=== PATIENT | male | born 1935 | race Caucasian/White ===

== ENCOUNTER → 2016-10-09 | Outpatient (CLI) | payer MEDICARE ==
[2016-10-09 08:58] LABS: Blood Urea Nitrogen 27 mg/dL (9-20); Non-African American GFR(MDRD) 52 (>60 ml/min/1.73 sqM)
--- NOTE | 2016-10-09 09:51 | CT ---
EXAMINATION TYPE: CT ChestAbdPelvis w con DATE OF EXAM: 10/09/2016 9:33 AM COMPARISON: 07/14/2016 HISTORY: Patient has no complaints at time of service. Follow up study for known lung CA. CT DLP: 2005.7 mGycm Automated exposure control for dose reduction was used. CONTRAST: CT scan of the chest, abdomen and pelvis is performed with Oral Contrast and with IV Contrast, patien t injected with 80 mL of Visipaque 320. FINDINGS: There is some hyperdense soft tissue thickening posterior to the left lobe of the thyroid gland which appears unchanged measuring up to 2.4 cm possibly related to thyroid nodule. Moderate to severe bilateral gynecomastia. The heart is normal size without pericardial effusion. Coronary vessel calcifications are present and are a marker for coronary artery disease. There is conventional arch vessel branching anatomy and mild atherosclerotic arch calcifications. The re is ectasia of the upper descending thoracic aorta at 3.2 cm. Subpleural 6 mm nodule left upper lobe retrospectively stable. A cluster of nodularity measuring 7 mm in the anterior right midlung is unchanged from previous. There is bibasilar strandy opacities likely representing scarring. There is a stable small left pleur al effusion. With subsegmental consolidation likely related to compressive atelectasis. Redemonstrated destructive lesion within the upper sternum measuring approximately 4.7 x 4.0 cm stabl e to minimally larger from prior exam. Lytic soft tissue extends down to the mid sternum. Redemonstrated osteolytic lesion involving the left T9 pedicle, lamina, and transverse process and th e subjacent proximal aspect of the left tenth rib. Involvement of the left transverse process also ap pears retrospectively stable. There appears to be relatively similar extension into the left lateral epidural space. Focal lucency L2 vertebral body also stable suspicious for metastasis. Canal stenosis suspected invol ving majority of the lumbar spine severe degenerative changes and facet arthropathy. Destructive right iliac lesion appears increased in size from previous exam now measuring 3.3 x 3.4 c m previously measuring 2.7 x 2 cm. ABDOMEN: Small hiatal hernia. Calcified granuloma posterior left hepatic lobe. No other focal liver lesion seen. Numerous layering calculi within the gallbladder. There is no abnormal gallbladder distention. Nodularity of the right adrenal gland measuring up to 2.1 cm is unchanged from previous. Left adrenal gland, left kidney, spleen, and pancreas show no gross abnormality. Redemonstrated 4.8 cm cyst lower pole right kidney. No dilated small bowel, free fluid, or free air. No mesenteric or retroperitoneal lymphadenopathy. Normal appendix. Oral contrast has progressed to th e hepatic flexure. There is mild overall stool burden an diverticulosis of the lower descending and p roximal sigmoid colon. No pericolonic inflammatory change. PELVIS: Bladder urine distended. Prostate gland enlarged at 5.0 cm wide with central prostatic calcifications . Moderate stool within the rectum. No abnormal fluid collection the pelvis or pelvic lymphadenopathy seen. Bones: Redemonstrated lytic lesion within the anterior right iliac crest. There appears to be a great er degree of endosteal scalloping suggesting slight lesional enlargement. Degenerative changes are pr esent throughout the spine particularly the upper to mid lumbar spine. Sternal lesion as well as left T9 posterior element and proximal left T10 rib lesions are redemonstrated as mentioned above. Scolio sis and multilevel degenerative disc disease again noted. IMPRESSION: 1. Redemonstrated lytic lesion within the left T9 posterior elements extending into the left lateral epidural space at this level. Also, subjacent lytic lesion proximal left tenth rib. Overall appearanc e is unchanged. 2. Lytic lesion involving the sternum is stable to minimally larger. 3. Lytic lesion anterior right iliac crest shows interval increase in size relative to the previous e xam. 4. Stable nodularity anterior right midlung could represent a site of treated disease. Also, stable 2 .1 cm right adrenal gland nodule. 5. Stable small left pleural effusion. 6. Distal colonic diverticulosis.
== END | disposition home or self-care (01) ==
LOC: RADCTMAIN 08:27
PROVIDERS: ATTEND Internal Medicine Hematology & Oncology
DX: Z03.89 Encounter for observation for other suspected diseases and conditions ruled out (principal); C34.12 Malignant neoplasm of upper lobe, left bronchus or lung
CPT/HCPCS: 82565; 84520; 71260; 74177; 36415; Q9967

== ENCOUNTER → 2016-11-12 | Outpatient (CLI) | payer MEDICARE ==
[2016-11-12 13:16] LABS: Blood Urea Nitrogen 32 mg/dL (9-20); Non-African American GFR(MDRD) 58 (>60 ml/min/1.73 sqM)
--- NOTE | 2016-11-12 15:02 | CT ---
EXAMINATION TYPE: CT soft tissue neck w con DATE OF EXAM: 11/12/2016 2:12 PM COMPARISON: NONE HISTORY: Neck Mass CT DLP: 627 mGycm CONTRAST: Patient injected with 100 ml mL of Omnipaque 300. TECHNIQUE: Axial images at 3 mm thick sections. Reconstructed images in the coronal plane and sagitt al plane are reviewed. FINDINGS: Limited CT sections are obtained the lung apices. The lung apices appear clear. CT neck: The torus tubarius and fossa of Rosenmuller are normal. Hearing Instrument Specialist spaces are normal. Parotid glands appear normal and symmetrical. Submandibular glands, are normal. Parapharyngeal spac es are normal. No suspicious adenopathy is evident. There is some asymmetry at the level of the left vocal cord level. This may be some due to some asymm etry of the arytenoid cartilage. Discrete mass is not identified. There is prominence of the left lobe of the thyroid which wraps around towards the esophagus. There m ay be some displacement of the trachea towards the left. This is similar to the 10/09/2016 CT chest fin dings. Differential could include adenopathy. Osseous structures are normal. No lytic areas are evident within the [id number]. Degenerative milner ges with foraminal stenosis is noted within the cervical spine, greater on the left. There is some mucosal thickening present within maxillary sinus on the right and within the right trace al passage. IMPRESSIONS: 1. Asymmetry of the arytenoid cartilage which may cause some displacement of the left vocal cord. 2. Adenopathy versus enlarged left lobe thyroid displacing the trachea towards the left.
== END | disposition home or self-care (01) ==
LOC: RADCTMAIN 12:24
PROVIDERS: ATTEND Otolaryngology
DX: R22.1 Localized swelling, mass and lump, neck (principal)
CPT/HCPCS: 82565; 84520; 70491; 36415; Q9967

== ENCOUNTER 2016-11-19 08:53 | Day surgery (SDC) | payer MEDICARE ==
[2016-11-19 10:03] VITALS: TEMP 97.9
[2016-11-19 10:32] VITALS: RESP 16
[2016-11-19 11:34] VITALS: BP 110/67; PULSE 74
--- NOTE | 2016-11-19 13:49 | CT ---
EXAMINATION TYPE: CT biopsy lymph node DATE OF EXAM: 11/19/2016 10:51 AM COMPARISON: NONE HISTORY: Lymphadenopathy-cervical region CT DLP: 3315mGycm The procedure was explained to the patient. The risks, complications, benefits, and alternatives wer e discussed and any questions were answered. Informed consent was obtained. Patient was placed supi ne on the CT table and prepped and draped in the usual sterile fashion. Utilizing CT guidance, an 22-gauge needle access into the left neck mass was achieved and 2 passes we re performed. Pathology confirmed adequate sample. The patient was stable throughout the procedure an d remained stable upon discharge. All elements of maximal barrier and sterile technique utilized. IMPRESSION: 1. Successful CT-guided FNA left neck mass.
== END 2016-11-19 11:00 | disposition home or self-care (01) ==
LOC: RADPROMAIN 08:53
PROVIDERS: ATTEND Otolaryngology
DX: C77.9 Secondary and unspecified malignant neoplasm of lymph node, unspecified (principal); C34.90 Malignant neoplasm of unspecified part of unspecified bronchus or lung
CPT/HCPCS: 10022; 38505; 77012; 88173; 88305; 88341; 88342

== ENCOUNTER → 2016-12-30 | Outpatient (CLI) | payer MEDICARE ==
[2016-12-30 14:43] LABS: Blood Urea Nitrogen 26 mg/dL (9-20); Non-African American GFR(MDRD) 58 (>60 ml/min/1.73 sqM)
--- NOTE | 2016-12-30 16:01 | CT ---
EXAMINATION TYPE: CT ChestAbdPelvis w con DATE OF EXAM: 12/30/2016 3:20 PM COMPARISON: 10/09/2016 HISTORY: 81-year-old male with lung Cancer TECHNIQUE: Contiguous axial scanning of the chest, abdomen, and pelvis performed with IV Contrast, pa tient injected with 100 ml mL of Omnipaque 300. Delayed images through the kidneys were obtained. Cor onal/sagittal reconstructions performed. CT DLP: 2023.60 mGycm Automated exposure control for dose reduction was used. FINDINGS: CHEST: Stable 2 cm hypodense prominence to the posterior left lobe of thyroid gland possibly underlying nodu le. Heart is normal size without pericardial effusion. Mild coronary vessel calcifications are present. B orderline ectasia ascending aorta at 3.5 cm. Mild atherosclerotic arch calcifications and conventiona l arch vessel branching anatomy. 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 Moderate bilateral gynecomastia redemonstrated. Evaluation of the lungs show some patchy basilar right middle lobe atelectasis, some dependent atelec tasis at the posterior lung bases, slightly decreased, now trace left pleural effusion with adjacent atelectasis. No new pulmonary nodules. Some patchy anterior right midlung and peripheral right midlung opacity is unchanged. ABDOMEN: Small hiatal hernia. Calcified granuloma inferior left hepatic lobe. No focal liver lesion. Numerous gallstones are presen t without abnormal gallbladder distention. Portal venous system is patent. Stable 2.1 cm right adrenal gland nodule. 5.7 cm right renal cyst is unchanged. Left kidney, left adrenal gland, spleen, and pancreas show no gross abnormality. No dilated small bowel, free fluid, or free air. A 6 mm aortocaval lymph node in the retroperitoneum is unchanged. Otherwise, no mesenteric or retrope ritoneal lymphadenopathy. There is sigmoid diverticulosis. Mild wall thickening and pericolonic fat stranding along the midsigm oid, for example, axial image 102 -105. Pelvis: Prostate gland remains mildly enlarged at 5.3 cm. Bladder is urine distended. No abnormal fluid colle ction in the pelvis or pelvic lymphadenopathy seen. Bones: Degenerative changes lower lumbar spine with degenerative levoconvex curvature and spondylotic change seen throughout the thoracic spine. Large heterogeneously enhancing lytic lesion involving the upper sternal body to the level of the lety rnomanubrial joint. This measures 7.6 x 7.8 x 4.3 cm versus 8.5 x 8.2 x 4.5 cm, previously. Lytic lesion within the left T9 posterior elements is redemonstrated as is the subjacent lytic lesion within the medial T10 rib. The destructive soft tissue lesion within the anterior right iliac bone is stable, possibly minimally larger measuring 5 cm wide versus 4.8 cm, previously. IMPRESSION: 1. SIGMOID DIVERTICULOSIS. THERE MAY BE SLIGHT PERICOLONIC FAT STRANDING ALONG THE MIDSIGMOID ; CORRE LATE FOR ANY SYMPTOMS OF MILD ACUTE DIVERTICULITIS. 2. DESTRUCTIVE SOFT TISSUE OF UPPER STERNAL BODY LESION SLIGHTLY SMALLER (7.6 X 7.8 X 4.3 CM VERSUS 8 .5 X 8.2 X 4.5 CM, PREVIOUSLY). 3. EXPANSILE DESTRUCTIVE ANTERIOR RIGHT ILIAC BONE LESION STABLE TO MINIMALLY LARGER (5.0 CM VERSUS 4 .8 CM, PREVIOUSLY). 4. LYTIC LESION LEFT T9 POSTERIOR ELEMENTS AND SUBJACENT LYTIC LESION MEDIAL LEFT 10TH RIB ARE UNCHAN GED. 5. STABLE 2.1 CM RIGHT ADRENAL GLAND NODULE. 6. STABLE PATCHY AND NODULAR DENSITIES IN THE RIGHT MIDLUNG. THERE IS DECREASING, NOW TRACE LEFT PLEU RAL EFFUSION WITH INCREASING PATCHY LEFT BASILAR ATELECTASIS.
== END | disposition home or self-care (01) ==
LOC: RADCTMAIN 13:48
PROVIDERS: ATTEND Internal Medicine Hematology & Oncology
DX: C34.12 Malignant neoplasm of upper lobe, left bronchus or lung (principal); J98.11 Atelectasis; J98.4 Other disorders of lung; R91.1 Solitary pulmonary nodule; E27.8 Other specified disorders of adrenal gland; K57.30 Diverticulosis of large intestine without perforation or abscess without bleeding; M79.89 Other specified soft tissue disorders; M89.8X8 Other specified disorders of bone, other site; R93.8 Abnormal findings on diagnostic imaging of other specified body structures
CPT/HCPCS: 82565; 84520; 71260; 74177; 36415; Q9967

== ENCOUNTER → 2017-04-14 | Outpatient (CLI) | payer MEDICARE ==
[2017-04-14 11:32] LABS: Blood Urea Nitrogen 23 mg/dL (9-20); Non-African American GFR(MDRD) 58 (>60 ml/min/1.73 sqM)
--- NOTE | 2017-04-14 12:35 | CT ---
EXAMINATION TYPE: CT chest w con DATE OF EXAM: 04/14/2017 COMPARISON: Prior CT 12/27/2016 HISTORY: Lung cancer CT DLP: 604.60 mGycm Automated exposure control for dose reduction was used. CONTRAST: CT scan of the chest is performed with IV Contrast, patient injected with 100 ml mL of Omnipaque 300. FINDINGS: LUNGS: There is been some interval increase in the amount of pleural fluid on the left. Some minimal pleural fluid also present on the right. MEDIASTINUM: The neck mass at the level of the thoracic inlet on the left is again noted and shows si milar AP dimension approximately 3.6 cm. AORTA: No additional significant abnormality is seen. OTHER: The large lytic lesion involving the sternum with soft tissue component is again seen as are the lytic lesions involving the spine, the show a similar appearance. Gallstones are again noted, the right adrenal nodule is stable. Exophytic simple cyst present at the lower pole of the right kidney again seen. Findings of gynecomastia suspected. IMPRESSION: Interval increase in pleural effusions left greater than right. Otherwise, findings show a similar appearance to previous exam.
== END | disposition home or self-care (01) ==
LOC: RADCTMAIN 10:51
PROVIDERS: ATTEND Internal Medicine Hematology & Oncology
DX: J90 Pleural effusion, not elsewhere classified (principal); C34.2 Malignant neoplasm of middle lobe, bronchus or lung
CPT/HCPCS: 82565; 84520; 71260; 36415; Q9967

== ENCOUNTER → 2017-04-17 | Outpatient (CLI) | payer MEDICARE ==
--- NOTE | 2017-04-17 11:19 | MR ---
EXAMINATION TYPE: MR brain wo/w con DATE OF EXAM: 04/17/2017 COMPARISON: NONE HISTORY: Lung ca , Confusion TECHNIQUE: Multiplanar, multisequence images of the brain and brainstem is performed without and with IV contras t, utilizing 10 mL intravenous Gadavist . FINDINGS: Diffusion weighted images demonstrate no evidence of a recent infarct or other diffusion ab normality. There is no extra-axial fluid collection. There is hyperintensity involving the josé luis as well as confluent and scattered hyperintensities on inversion recovery and T2-weighted sequences in t he periventricular and subcortical white matter. The ventricular system and cisternal spaces are norm al in size and appearance. The brain volume is age appropriate. Midline structures demonstrate normal morphology. The craniocervical junction appears within normal limits. Post contrast images demonstrate no abnormal enhancement. The dural venous sinuses appear pa tent. The visualized sinuses are remarkable for inflammatory changes in the bilateral maxillary sinus , ethmoid air cells, frontal sinus, and the globes are intact. IMPRESSION: Nonspecific white matter demyelination, age related atrophy. Extensive sinus disease.
== END ==
LOC: RADMRIMAIN 10:02
PROVIDERS: ATTEND Internal Medicine Hematology & Oncology
DX: C34.12 Malignant neoplasm of upper lobe, left bronchus or lung (principal); R90.89 Other abnormal findings on diagnostic imaging of central nervous system; G31.1 Senile degeneration of brain, not elsewhere classified
CPT/HCPCS: 70553; A9581

== ENCOUNTER → 2017-06-23 | Outpatient (CLI) | payer MEDICARE ==
[2017-06-23 10:41] LABS: Blood Urea Nitrogen 23 mg/dL (9-20); Non-African American GFR(MDRD) 54 (>60 ml/min/1.73 sqM)
--- NOTE | 2017-06-23 12:47 | CT ---
EXAMINATION TYPE: CT chest w con DATE OF EXAM: 06/23/2017 COMPARISON: 04/14/2017 and 12/30/2016 HISTORY: 81-year-old male follow-up lung cancer Lung CA follow up TECHNIQUE: Contiguous axial scanning of the chest after the administration of 80 mL of Visipaque 320. Coronal/sagittal reconstructions performed. CT DLP: 597.4mGycm. Automatic exposure control utilized for a dose reduction. FINDINGS: The heart is normal size without pericardial effusion. Coronary vascular calcifications are present. Marker for coronary artery disease. Ascending aorta at 3.6 cm. Upper descending thoracic aorta mildly aneurysmal at 3.2 cm. Conventional arch vessel branching anatomy. Large heterogeneous nodule of the left lobe of thyroid gland measuring 3.1 cm, appearing minimally mo re full from prior 12/30/2016 exam. Slight rightward deviation of the trachea at this level. Moderate bilateral gynecomastia. Scattered mild interstitial thickening in the mid to lower lungs is a chronic postinflammatory appear ance likely with interstitial scarring. Some focal patchy peripheral left basilar opacity suggests pl eural parenchymal scarring. There is residual small left pleural effusion, slightly decreased from pr ior. Trace right pleural effusion is similar. Minimal patch of groundglass right middle lobe unchanged. Small hiatal hernia with small layering calculi measuring up to 9 mm. A 2.1 cm right adrenal gland no dule is relatively unchanged. Bones: Redemonstrated destructive lesion involving the left posterior elements of T9 vertebral body a nd with stable focal lysis of the posteromedial left rib at this level. Destructive soft tissue mass involving the upper sternal body now measures 8.1 cm craniocaudal by 8.1 cm wide by 4.6 cm AP (versus 7.3 x 7.6 x 4.4 cm on 04/14/2017). IMPRESSION: 1. Small left trace right pleural effusions persist. Patchy opacity peripheral left base suspected to represent pleural parenchymal scarring. Small patch of groundglass right middle lobe and the 2.1 cm right adrenal gland nodule are unchanged as well. 2. 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 3. Destructive soft tissue mass involving the upper sternal body increased in size now measuring 8.1 x 8.1 cm versus 7.3 x 7.6 cm, previously. 4. There seems to be gradual enlargement of the patient's left thyroid nodule now measuring up to 3.1 cm. This has mild mass effect onto the trachea at this level without airway compromise.
== END | disposition home or self-care (01) ==
LOC: RADCTMAIN 09:58
PROVIDERS: ATTEND Internal Medicine Hematology & Oncology
DX: J90 Pleural effusion, not elsewhere classified (principal); C34.12 Malignant neoplasm of upper lobe, left bronchus or lung; C79.51 Secondary malignant neoplasm of bone; M79.89 Other specified soft tissue disorders
CPT/HCPCS: 82565; 84520; 71260; 36415; Q9967

== ENCOUNTER → 2017-09-21 | Outpatient (CLI) | payer MEDICARE ==
[2017-09-21 09:41] LABS: Blood Urea Nitrogen 27 mg/dL (9-20)
--- NOTE | 2017-09-21 14:46 | CT ---
EXAMINATION TYPE: CT ChestAbdPelvis w con DATE OF EXAM: 09/21/2017 INDICATION: Follow up to lung CA COMPARISON: 06/23/2017 CT DLP: 2100.7 mGycm CONTRAST: Performed with Oral Contrast and with IV Contrast, patient injected with 100 mL of Omnipaque 300. TECHNIQUE: Axial images at 5 mm thick sections. Reconstructed images in the coronal plane. Delayed images through the kidneys. FINDINGS: CT CHEST: Left lobe thyroid appears enlarged and is places the trachea to the right. A 0.4 cm peripheral density may be the lateral right lung apex. Series 5 image 12. Small groundglass opacities in the posterior lateral right upper lobe. Series 5 image 14. Peripheral based density may be within the upper anterior left chest measuring 0.5 cm. Series 5 image 14. There is a 0.4 cm nodula r density along the major fissure on the right lower lung field series 5 image 36. At the left base there is a 0.4 cm triangular density at the same level. Series 5 image 36. These tiny densities appea r stable. There is increasing size left lingular nodule measuring 1.3 cm near the diaphragm. Series 5 image 43. Minimal left pleural effusion is present. A very small right pleural effusion is present. These are s table from 2017. No enlarged mediastinal or hilar adenopathy is evident. The ascending aorta diameter at the level of the main pulmonary artery is 3.7 cm. The main pulmonary artery diameter at the bifurcation is 2.2 cm. There is a large mass expanding the sternum. Appears to measure 4.8 x 8.3 cm centered on image 18 ser ies 4. This extends into the inferior sternum and has retrosternal soft tissue. This appears larger t art comparison. CT ABDOMEN: Liver: Normal Spleen: Normal Pancreas: Normal Adrenal glands: The adrenal glands are normal. Gallbladder: Gallstones are present. Kidneys: No masses are evident. No hydronephrosis is present. There is a 5.4 cm cyst measuring 9 Ho unsfield units at the inferior pole right kidney. Delayed images were obtained through the kidneys, which remain unremarkable. Aorta: Vascular calcification is within the aorta. Inferior vena cava: Normal. CT PELVIS: Loops of bowel within the abdomen and pelvis are normal. Diverticular changes and thickening thro ugh the proximal sigmoid colon may be present. Mild diverticulitis or underlying mass could be consid ered. Asymmetric thickening at the level the rectum may be present. Clinical correlation is recommend ed. Appendix: Not identified. No suspicious tubular structures or inflammatory changes are evident. Urinary bladder: Normal. Genitourinary structures: Prostate calcification may be present. Osseous structures: No suspicious lytic or sclerotic lesions. IMPRESSIONS: 1. Enlarging sternal metastasis. 2. Increasing nodular density lingula can be related atelectasis or metastatic lesion. 3. Thickening of the sigmoid colon related to mild diverticulitis. Adjacent inflammatory changes are not identified. Underlying mass is not excluded. Follow-up is recommended. 4. Some thickening appears asymmetric at the level the rectum.
== END | disposition home or self-care (01) ==
LOC: RADCTMAIN 08:50
PROVIDERS: ATTEND Internal Medicine Hematology & Oncology
DX: C34.12 Malignant neoplasm of upper lobe, left bronchus or lung (principal); C79.51 Secondary malignant neoplasm of bone; K57.92 Diverticulitis of intestine, part unspecified, without perforation or abscess without bleeding; K62.89 Other specified diseases of anus and rectum
CPT/HCPCS: 82565; 84520; 71260; 74177; 36415; Q9967

== ENCOUNTER → 2017-10-06 | Outpatient (CLI) | payer MEDICARE ==
--- NOTE | 2017-10-07 12:59 | ECHOF ---
Referral Reason:C34.12 Lung cancer Z01.818 [facility] MEASUREMENTS -------- HEIGHT: 175.3 cm WEIGHT: 108.9 kg BP: 142/77 RVIDd: 2.7 cm (< 3.3) IVSd: 1.4 cm (0.6 - 1.1) LVIDd: 4.6 cm (3.9 - 5.3) LVPWd: 1.4 cm (0.6 - 1.1) IVSs: 1.6 cm LVIDs: 3.4 cm LVPWs: 1.6 cm LAESV Index (A-L): 15.16 ml/m Ao Diam: 3.5 cm (2.0 - 3.7) AV Cusp: 0.9 cm (1.5 - 2.6) LA Diam: 3.8 cm (2.7 - 3.8) MV E Adriel: 0.74 m/s MV DecT: 260 ms MV A Adriel: 1.02 m/s MV E/A Ratio: 0.72 AV maxP.58 mmHg AV meanP.03 mmHg RAP: 5.00 mmHg RVSP: 27.41 mmHg FINDINGS -------- Sinus rhythm. This was a technically adequate study. The left ventricular size is normal. There is mild concentric left ventricular hypertrophy. Overa ll left ventricular systolic function is normal with, an EF between 55 - 60 %. The right ventricle is normal in size and function. Normal LA size by volume 22+/-6 ml/m2. The right atrium is normal in size. There is mild aortic valve sclerosis. There is no evidence of aortic regurgitation. There is no e vidence of aortic stenosis. The mitral valve leaflets are mildly thickened. There is trace to mild mitral regurgitation. Trace tricuspid regurgitation present. Right ventricular systolic pressure is normal at < 35 mmHg. There is no evidence of pulmonary hypertension. The pulmonic valve was not well visualized. The aortic root size is normal. Normal inferior vena cava with normal inspiratory collapse consistent with estimated right atrial pre ssure of 5 mmHg. The pericardium is normal. There is no pericardial effusion. CONCLUSIONS -------- 1. Sinus rhythm. 2. This was a technically adequate study. 3. The left ventricular size is normal. 4. There is mild concentric left ventricular hypertrophy. 5. Overall left ventricular systolic function is normal with, an EF between 55 - 60 %. 6. Normal LA size by volume 22+/-6 ml/m2. 7. There is mild aortic valve sclerosis. 8. The mitral valve leaflets are mildly thickened. 9. There is trace to mild mitral regurgitation. 10. Trace tricuspid regurgitation present. 11. Right ventricular systolic pressure is normal at < 35 mmHg. 12. There is no evidence of pulmonary hypertension. 13. The pulmonic valve was not well visualized. 14. The aortic root size is normal. 15. There is no pericardial effusion. METAL INSPECTOR: Chris Contreras RDCS
== END | disposition home or self-care (01) ==
LOC: RADECHMAIN 12:52
PROVIDERS: ATTEND Internal Medicine Hematology & Oncology
DX: C34.12 Malignant neoplasm of upper lobe, left bronchus or lung (principal); I08.0 Rheumatic disorders of both mitral and aortic valves
CPT/HCPCS: 93306

== ENCOUNTER 2017-12-19 10:47 | Emergency (ER) | payer MEDICARE ==
--- NOTE | 2017-12-19 11:50 | ED ---
Weakness HPI - General Chief complaint: Weakness Stated complaint: weak/fell/ca pt Time Seen by Provider: 12/19/17 11:15 Source: patient, family, RN notes reviewed Mode of arrival: ambulatory Limitations: no limitations - History of Present Illness Initial comments: This is a 82-year-old male with a history of metastatic lung cancer to the right hip to his ribs who has been in treatment recently. He is brought today by his significant other for evaluation for some altered mental status. 2 days ago he apparently fell and went to bed leaving the door opened into the house. He was noted to be confused and not "connecting dots" he seemed improved somewhat yesterday he had trouble driving and he had the perception problems he could not remember how to put the car into park and he would turn worse he would take very wide turns and not realizing was in the wrong ab[place]. Today he states he feels better he denies any headache blurry vision fevers chills nausea vomiting sweats or other symptoms. His concern that it might be new medication he started no cough phlegm or other symptoms no other modifying factors at this time MD Complaint: generalized weakness - Related Data Home Medications Medication Instructions Recorded Confirmed Enalapril [Vasotec] 10 mg PO DAILY 12/19/13 12/19/17 Verapamil HCl [Verapamil ER] 180 mg PO DAILY 12/19/13 12/19/17 Cholecalciferol [Vitamin D3] 50,000 unit PO QMONTH 06/12/16 12/19/17 Docusate [Colace] 100 mg PO DAILY 11/05/16 12/19/17 Rivaroxaban [Xarelto] 15 mg PO DAILY 11/05/16 12/19/17 Taflinar 75 mg PO BID 12/19/17 Trametinib Dimethyl Sulfoxide 2 mg PO 12/19/17 [Mekinist] Allergies Allergy/AdvReac Type Severity Reaction Status Date / Time No Known Allergies Allergy Verified 11/05/16 15:33 Review of Systems ROS Statement: Those systems with pertinent positive or pertinent negative responses have been documented in the HPI. ROS Other: All systems not noted in ROS Statement are negative. Past Medical History Past Medical History: Cancer, Hypertension, Pulmonary Embolus (PE) Additional Past Medical History / Comment(s): Lung CA History of Any Multi-Drug Resistant Organisms: None Reported Past Surgical History: Adenoidectomy, Tonsillectomy Additional Past Surgical History / Comment(s): nose surgery to open air passage Past Anesthesia/Blood Transfusion Reactions: No Reported Reaction Past Psychological History: No Psychological Hx Reported Smoking Status: Never smoker Past Alcohol Use History: None Reported Past Drug Use History: None Reported - Past Family History Brother(s) Family Medical History: Cancer General Exam - General Exam Comments Initial Comments: This is a well-developed well-nourished awake alert male he thought was October but when corrected realizing was December Limitations: no limitations General appearance: alert, in no apparent distress Head exam: Present: atraumatic, normocephalic, normal inspection Eye exam: Present: normal appearance, PERRL, EOMI. Absent: scleral icterus, conjunctival injection, periorbital swelling ENT exam: Present: normal exam, mucous membranes moist Neck exam: Present: normal inspection. Absent: tenderness, meningismus, lymphadenopathy Respiratory exam: Present: normal lung sounds bilaterally. Absent: respiratory distress, wheezes, rales, rhonchi, stridor Cardiovascular Exam: Present: regular rate, normal rhythm, normal heart sounds. Absent: systolic murmur, diastolic murmur, rubs, gallop, clicks GI/Abdominal exam: Present: soft, normal bowel sounds. Absent: distended, tenderness, guarding, rebound, rigid Extremities exam: Present: normal inspection, full ROM, normal capillary refill. Absent: tenderness, pedal edema, joint swelling, calf tenderness Back exam: Present: normal inspection Neurological exam: Present: alert, oriented X3, CN II-XII intact Psychiatric exam: Present: normal affect, normal mood Skin exam: Present: warm, dry, intact, normal color. Absent: rash Course Vital Signs 12/19/17 12/19/17 12/19/17 11:11 12:44 13:48 Temperature 97.3 F L 97.8 F Pulse Rate 89 85 71 Respiratory 18 20 20 Rate Blood Pressure 98/69 84/50 90/53 O2 Sat by Pulse 99 98 Oximetry - Reevaluation(s) Reevaluation #1: 12/19/17 12:44 The patient was noted have a blood pressure of 84/50 was given a 500 mL fluid bolus. Medical Decision Making - Medical Decision Making I did a long discussion with patient and his significant other. The original plan was to admit the patient for IV fluids and evaluation for early rhabdomyolysis as well as renal insufficiency dehydration and a hypotensive episode after multiple minutes of discussion with the patient he does not want to be admitted and is going to be going home I did caution him about increase his oral fluids and follow-up with his doctor in 2 days. He is agreed to do this. His significant other will be driving him home. The patient is awake alert oriented 3. I did also caution him about not driving. - Lab Data Result diagrams: 12/19/17 11:58 12/19/17 11:58 Lab Results 12/19/17 12/19/17 12/19/17 Range/Units 11:58 11:58 11:58 WBC (3.8-10.6) k/uL RBC (4.30-5.90) m/uL Hgb (13.0-17.5) gm/dL Hct (39.0-53.0) % MCV (80.0-100.0) fL MCH (25.0-35.0) pg MCHC (31.0-37.0) g/dL RDW (11.5-15.5) % Plt Count (150-450) k/uL Neutrophils % % Lymphocytes % % Monocytes % % Eosinophils % % Basophils % % Neutrophils # (1.3-7.7) k/uL Lymphocytes # (1.0-4.8) k/uL Monocytes # (0-1.0) k/uL Eosinophils # (0-0.7) k/uL Basophils # (0-0.2) k/uL Manual Slide Review Large Platelets RBC Morphology Sodium 136 L (137-145) mmol/L Potassium 3.6 (3.5-5.1) mmol/L Chloride 102 (98-107) mmol/L Carbon Dioxide 21 L (22-30) mmol/L Anion Gap 13 mmol/L BUN 35 H (9-20) mg/dL Creatinine 1.40 H (0.66-1.25) mg/dL Est GFR (CKD-EPI)AfAm 55 (>60 ml/min/1.73 sqM) Est GFR (CKD-EPI)NonAf 47 (>60 ml/min/1.73 sqM) Glucose 149 H (74-99) mg/dL Calcium 8.4 (8.4-10.2) mg/dL Magnesium 1.9 (1.6-2.3) mg/dL Total Bilirubin 0.8 (0.2-1.3) mg/dL AST 139 H (17-59) U/L ALT 42 (21-72) U/L Alkaline Phosphatase 67 (38-126) U/L Ammonia 20 (<30) umol/L Total Creatine Kinase 1580 H (55-170) U/L CK-MB (CK-2) 1.8 (0.0-2.4) ng/mL CK-MB (CK-2) Rel Index 0.1 Total Protein 6.6 (6.3-8.2) g/dL Albumin 3.0 L (3.5-5.0) g/dL Amylase 78 (30-110) U/L Lipase 286 (23-300) U/L 12/19/17 Range/Units 11:58 WBC 7.7 (3.8-10.6) k/uL RBC 4.63 (4.30-5.90) m/uL Hgb 13.8 (13.0-17.5) gm/dL Hct 40.4 (39.0-53.0) % MCV 87.4 (80.0-100.0) fL MCH 29.7 (25.0-35.0) pg MCHC 34.0 (31.0-37.0) g/dL RDW 14.7 (11.5-15.5) % Plt Count 94 L (150-450) k/uL Neutrophils % 80 % Lymphocytes % 14 % Monocytes % 4 % Eosinophils % 0 % Basophils % 0 % Neutrophils # 6.1 (1.3-7.7) k/uL Lymphocytes # 1.1 (1.0-4.8) k/uL Monocytes # 0.3 (0-1.0) k/uL Eosinophils # 0.0 (0-0.7) k/uL Basophils # 0.0 (0-0.2) k/uL Manual Slide Review Performed Large Platelets Present RBC Morphology Normal Sodium (137-145) mmol/L Potassium (3.5-5.1) mmol/L Chloride (98-107) mmol/L Carbon Dioxide (22-30) mmol/L Anion Gap mmol/L BUN (9-20) mg/dL Creatinine (0.66-1.25) mg/dL Est GFR (CKD-EPI)AfAm (>60 ml/min/1.73 sqM) Est GFR (CKD-EPI)NonAf (>60 ml/min/1.73 sqM) Glucose (74-99) mg/dL Calcium (8.4-10.2) mg/dL Magnesium (1.6-2.3) mg/dL Total Bilirubin (0.2-1.3) mg/dL AST (17-59) U/L ALT (21-72) U/L Alkaline Phosphatase (38-126) U/L Ammonia (<30) umol/L Total Creatine Kinase (55-170) U/L CK-MB (CK-2) (0.0-2.4) ng/mL CK-MB (CK-2) Rel Index Total Protein (6.3-8.2) g/dL Albumin (3.5-5.0) g/dL Amylase (30-110) U/L Lipase (23-300) U/L - Radiology Data Radiology results: report reviewed (November the imaging and report is evidence of a right side are old based mass in the lung.), image reviewed Disposition Clinical Impression: Renal insufficiency syndrome, Dehydration, Rhabdomyolysis, Episode of confusion Disposition: HOME SELF-CARE Condition: Stable Is patient prescribed a controlled substance at d/c from ED?: No Referrals: Andrea Donaldson MD [Primary Care Provider] - 1-2 days
[2017-12-19] MEDS ORDERED: SODIUM CHLORIDE 0.9% 500 ML IV STA (12:43)
--- NOTE | 2017-12-19 12:45 | XR ---
EXAMINATION TYPE: XR chest 2V DATE OF EXAM: 12/19/2017 HISTORY: cough. REFERENCE: NONE. FINDINGS: There is a pleural-based, 5.3 cm mass along the right lateral chest wall. The lungs are oth erwise clear. Pleural space are clear. The heart is not enlarged. IMPRESSION: PLEURAL-BASED 5.3 CM RIGHT LUNG MASS.
--- NOTE | 2017-12-19 12:47 | CT ---
EXAMINATION TYPE: CT brain wo con DATE OF EXAM: 12/19/2017 COMPARISON: NONE HISTORY: Patient complains of weakness and confusion. Patient currently on new chemotherapy. CT DLP: 1055 mGycm Automated exposure control for dose reduction was used. FINDINGS: There are generalized changes of sulcal prominence and ventriculomegaly, compatible with atrophic larry nge. There is mild, diffuse periventricular white matter lucency, compatible with white matter ischem ic change. There is no acute focal lesion, mass effect or midline shift identified. I do not see evid ence of intracranial blood. Visualized portions of the paranasal sinuses and mastoids are clear. The bony calvarium is intact. IMPRESSION: 1. NO ACUTE INTRACRANIAL ABNORMALITY. 2. DEGENERATIVE CHANGE.
[2017-12-19 13:46] LABS: Basophils % (A) 0 %; Calcium 8.4 mg/dL (8.4-10.2); Eosinophils % (A) 0 %; HCT 40.4 % (39.0-53.0); HGB 13.8 gm/dL (13.0-17.5); Lymphocytes # (A) 1.1 k/uL (1.0-4.8); Lymphocytes % (A) 14 %; MCH 29.7 pg (25.0-35.0); MCV 87.4 fL (80.0-100.0); Magnesium 1.9 mg/dL (1.6-2.3); Mean Platelet Volume 7.5; Monocytes # (A) 0.3 k/uL (0-1.0); Monocytes % (A) 4 %; Neutrophils # (A) 6.1 k/uL (1.3-7.7); Neutrophils % (A) 80 %; Potassium 3.6 mmol/L (3.5-5.1); RBC 4.63 m/uL (4.30-5.90); RDW 14.7 % (11.5-15.5); Total Bilirubin 0.8 mg/dL (0.2-1.3); Total Protein 6.6 g/dL (6.3-8.2); WBC 7.7 k/uL (3.8-10.6)
[2017-12-19] MEDS ORDERED: SODIUM CHLORIDE 0.9% 500 ML IV ONE (13:54)
[2017-12-19 14:08] LABS: Large Platelets Present; Platelet Count 94 k/uL (150-450)
[2017-12-19 14:09] LABS: Creatine Kinase MB 1.8 ng/mL (0.0-2.4)
--- NOTE | 2017-12-19 14:44 | ED ---
Medical Decision Making - Lab Data Result diagrams: 12/19/17 11:58 12/19/17 11:58 Lab Results 12/19/17 12/19/17 12/19/17 Range/Units 11:58 11:58 11:58 WBC (3.8-10.6) k/uL RBC (4.30-5.90) m/uL Hgb (13.0-17.5) gm/dL Hct (39.0-53.0) % MCV (80.0-100.0) fL MCH (25.0-35.0) pg MCHC (31.0-37.0) g/dL RDW (11.5-15.5) % Plt Count (150-450) k/uL Neutrophils % % Lymphocytes % % Monocytes % % Eosinophils % % Basophils % % Neutrophils # (1.3-7.7) k/uL Lymphocytes # (1.0-4.8) k/uL Monocytes # (0-1.0) k/uL Eosinophils # (0-0.7) k/uL Basophils # (0-0.2) k/uL Manual Slide Review Large Platelets RBC Morphology Sodium 136 L (137-145) mmol/L Potassium 3.6 (3.5-5.1) mmol/L Chloride 102 (98-107) mmol/L Carbon Dioxide 21 L (22-30) mmol/L Anion Gap 13 mmol/L BUN 35 H (9-20) mg/dL Creatinine 1.40 H (0.66-1.25) mg/dL Est GFR (CKD-EPI)AfAm 55 (>60 ml/min/1.73 sqM) Est GFR (CKD-EPI)NonAf 47 (>60 ml/min/1.73 sqM) Glucose 149 H (74-99) mg/dL Calcium 8.4 (8.4-10.2) mg/dL Magnesium 1.9 (1.6-2.3) mg/dL Total Bilirubin 0.8 (0.2-1.3) mg/dL AST 139 H (17-59) U/L ALT 42 (21-72) U/L Alkaline Phosphatase 67 (38-126) U/L Ammonia 20 (<30) umol/L Total Creatine Kinase 1580 H (55-170) U/L CK-MB (CK-2) 1.8 (0.0-2.4) ng/mL CK-MB (CK-2) Rel Index 0.1 Total Protein 6.6 (6.3-8.2) g/dL Albumin 3.0 L (3.5-5.0) g/dL Amylase 78 (30-110) U/L Lipase 286 (23-300) U/L /07/27 Range/Units 11:58 WBC 7.7 (3.8-10.6) k/uL RBC 4.63 (4.30-5.90) m/uL Hgb 13.8 (13.0-17.5) gm/dL Hct 40.4 (39.0-53.0) % MCV 87.4 (80.0-100.0) fL MCH 29.7 (25.0-35.0) pg MCHC 34.0 (31.0-37.0) g/dL RDW 14.7 (11.5-15.5) % Plt Count 94 L (150-450) k/uL Neutrophils % 80 % Lymphocytes % 14 % Monocytes % 4 % Eosinophils % 0 % Basophils % 0 % Neutrophils # 6.1 (1.3-7.7) k/uL Lymphocytes # 1.1 (1.0-4.8) k/uL Monocytes # 0.3 (0-1.0) k/uL Eosinophils # 0.0 (0-0.7) k/uL Basophils # 0.0 (0-0.2) k/uL Manual Slide Review Performed Large Platelets Present RBC Morphology Normal Sodium (137-145) mmol/L Potassium (3.5-5.1) mmol/L Chloride (98-107) mmol/L Carbon Dioxide (22-30) mmol/L Anion Gap mmol/L BUN (9-20) mg/dL Creatinine (0.66-1.25) mg/dL Est GFR (CKD-EPI)AfAm (>60 ml/min/1.73 sqM) Est GFR (CKD-EPI)NonAf (>60 ml/min/1.73 sqM) Glucose (74-99) mg/dL Calcium (8.4-10.2) mg/dL Magnesium (1.6-2.3) mg/dL Total Bilirubin (0.2-1.3) mg/dL AST (17-59) U/L ALT (21-72) U/L Alkaline Phosphatase (38-126) U/L Ammonia (<30) umol/L Total Creatine Kinase (55-170) U/L CK-MB (CK-2) (0.0-2.4) ng/mL CK-MB (CK-2) Rel Index Total Protein (6.3-8.2) g/dL Albumin (3.5-5.0) g/dL Amylase (30-110) U/L Lipase (23-300) U/L Disposition Clinical Impression: Renal insufficiency syndrome, Dehydration, Rhabdomyolysis, Episode of confusion Disposition: Left Against Medical Advice Condition: Stable Instructions: Dehydration (ED), Rhabdomyolysis (ED) Is patient prescribed a controlled substance at d/c from ED?: No Referrals: Andrea Donaldson MD [Primary Care Provider] - 1-2 days
[2017-12-19 14:50] VITALS: BP 96/56; PULSE 98; RESP 18; TEMP 98.4
== END 2017-12-19 14:50 | disposition left against medical advice (07) ==
LOC: EC 10:47
DX: M62.82 Rhabdomyolysis (principal); E86.0 Dehydration; N28.9 Disorder of kidney and ureter, unspecified; R41.0 Disorientation, unspecified; I10 Essential (primary) hypertension; Z85.118 Personal history of other malignant neoplasm of bronchus and lung; Z85.89 Personal history of malignant neoplasm of other organs and systems; Z86.711 Personal history of pulmonary embolism; Z79.01 Long term (current) use of anticoagulants; Z79.899 Other long term (current) drug therapy
CPT/HCPCS: 36415; 70450; 71046; 80053; 82140; 82150; 82550; 82553; 83690; 83735; 85025; 96360; 96361; 99285

== ENCOUNTER → 2017-12-22 | Outpatient (CLI) | payer MEDICARE ==
--- NOTE | 2017-12-22 16:43 | CT ---
EXAMINATION TYPE: CT ChestAbdPelvis w con DATE OF EXAM: 12/22/2017 COMPARISON: 09/21/2017 and 12/30/2016 HISTORY: 82-year-old male Follow-up lung cancer. Prechemotherapy, suspect metastases. TECHNIQUE: Contiguous axial scanning of the chest, abdomen, and pelvis performed with IV Contrast, pa tient injected with 80 mL of Isovue M300. Delayed images through the kidneys were obtained. Coronal/s agittal reconstructions performed. CT DLP: 2366 mGycm Automated exposure control for dose reduction was used. FINDINGS: Chest: Heart normal size without pericardial effusion. Coronary vessel calcifications are present in remarka ble for coronary artery disease. Moderate atherosclerotic arch calcifications. Convention arch vessel branching anatomy. Soft tissue prominence at the cervical esophagus possibly due to prominent thyroid tissue, this is le ss pronounced from 09/21/2017. Refer to axial image 8. No thoracic lymphadenopathy by CT size criteria. Mild biapical pleural-parenchymal scarring. A few stable 3 to 4 mm right apical pulmonary nodules are unchanged as is a 3 to 4 mm peripheral left upper lobe pulmonary nodule axial image 18. Similar 1.3 cm spiculated nodule peripheral left base, axial image 41. Small left pleural effusion is slightly larger and there is increasing adjacent atelectasis or consolidation at the posterior left base. Similar strandy atelectasis at the right base. Expansile lytic lesion measuring 3.9 x 2.9 cm versus 2.7 x 1.7 cm on 09/21/2017 involving the right an terolateral fourth rib. Destructive sternal lesion is redemonstrated but is smaller now measuring 8.0 x 2.9 cm versus 8.3 x 4 .8 cm, previously. The more inferior component measures 3.7 x 2.6 cm versus 5.1 x 4.3 cm, previously. Moderate bilateral gynecomastia. No increasing thoracic lymphadenopathy. ABDOMEN: Small hiatal hernia. Calcified granuloma peripheral left liver lobe. No focal liver lesion otherwise seen. There is subtle pneumobilia peripherally in the anterior left liver lobe suggesting prior sphin cterotomy. Numerous calculi layering in the nondistended gallbladder. No biliary ductal dilatation. Right adrenal gland nodule is smaller now measuring 1.6 x 0.8 cm versus 2.3 x 1.3 cm, previously. Prominent 5.2 cm lower pole right renal cyst. Left kidney, left adrenal gland, spleen, and pancreas o therwise show no gross abnormality. Scattered prominent but nonenlarged retroperitoneal lymph nodes measure up to 8 mm. No dilated small bowel, free fluid, or free air. Mild stool burden. Sigmoid diverticulosis with wall thickening of the proximal sigmoid probably due to chronic diverticulitis. No pericolonic inflammator y change. Pelvis: Bladder is urine distended. Prostate gland is enlarged measuring 5.3 cm with posterior impression on to the bladder base. Multiple pelvic phleboliths. No abnormal fluid collection in the pelvis or pelvi c lymphadenopathy. Redemonstrated destructive soft tissue lesion along the anterior right iliac crest measuring 7.8 cm v ersus 8.3 cm, previously. Persistent soft tissue extension into the anterior upper thigh musculature. Bones: Sternal lesion, right iliac crest lesion, anterolateral right fourth rib lesion as mentioned above. S table lytic lesion in the L2 vertebral body and also stable lytic lesion involving the left posterior elements at T9 vertebral body. IMPRESSION: 1. STABLE 1.3 CM SPICULATED LEFT BASILAR PULMONARY NODULE. A SMALL LEFT PLEURAL EFFUSION HAS INCREASE D IN THE INTERVAL. ADDITIONAL FEW SCATTERED 4 MM AND SMALLER PULMONARY NODULES ARE UNCHANGED. 2. ENLARGING RIGHT ANTEROLATERAL FOURTH RIB DESTRUCTIVE LESION (3.9 CM VERSUS 2.7 CM, PREVIOUSLY). 3. BOTH THE LARGE DESTRUCTIVE STERNAL LESION AND THE DESTRUCTIVE RIGHT ILIAC CREST LESION HAVE DECREA SED IN SIZE. LYTIC LESION IN THE L2 VERTEBRAL BODY WELL THE POSTERIOR ELEMENTS OF T9 ARE STABLE . 4. THE RIGHT ADRENAL NODULE HAS DECREASED IN SIZE NOW MEASURING 1.6 CM VERSUS 2.3 CM, PREVIOUSLY. 5. CIRCUMFERENTIAL WALL THICKENING PROXIMAL SIGMOID WITH ASSOCIATED DIVERTICULOSIS COULD BE SECONDARY TO CHRONIC DIVERTICULITIS. DIRECT VISUALIZATION IF NOT ALREADY PERFORMED TO EXCLUDE UNDERLYING NEOPL ASM. 6. CHOLELITHIASIS. SUBTLE PNEUMOBILIA ANTERIOR LEFT LIVER LOBE PROBABLY SECONDARY TO PRIOR SPHINCTERO YUE. CLINICALLY CORRELATE.
--- NOTE | 2017-12-23 06:50 | ECHOF ---
Referral Reason:Lung CA, Z01.818 Pre Chemo, Z03.89 Suspect Mets MEASUREMENTS -------- HEIGHT: 175.3 cm WEIGHT: 105.2 kg BP: RVIDd: 3.5 cm (< 3.3) IVSd: 0.9 cm (0.6 - 1.1) LVIDd: 5.2 cm (3.9 - 5.3) LVPWd: 1.0 cm (0.6 - 1.1) IVSs: 1.1 cm LVIDs: 4.2 cm LVPWs: 1.4 cm LAESV Index (A-L): 27.99 ml/m Ao Diam: 3.2 cm (2.0 - 3.7) AV Cusp: 1.6 cm (1.5 - 2.6) LA Diam: 3.9 cm (2.7 - 3.8) MV E Adriel: 0.79 m/s MV DecT: 299 ms MV A Adriel: 0.86 m/s MV E/A Ratio: 0.93 RAP: 5.00 mmHg RVSP: 15.30 mmHg FINDINGS -------- Sinus rhythm. This was a technically difficult study with suboptimal views. The left ventricular size is normal. Left ventricular wall thickness is normal. Overall left vent ricular systolic function is low-normal with, an EF between 50 - 55 %. The right ventricle is normal in size. Normal LA size by volume 22+/-6 ml/m2. The right atrium is normal in size. 3ml of Lumason was utilized for enhancement of images. There is mild aortic valve sclerosis. There is no evidence of aortic regurgitation. There is no e vidence of aortic stenosis. The mitral valve is normal. There is trace to mild mitral regurgitation. Mild tricuspid regurgitation present. Right ventricular systolic pressure is normal at < 35 mmHg. There is no evidence of pulmonary hypertension. The pulmonic valve was not well visualized. There is no pulmonic regurgitation present. The aortic root size is normal. Normal inferior vena cava with normal inspiratory collapse consistent with estimated right atrial pre ssure of 5 mmHg. There is no pericardial effusion. CONCLUSIONS -------- 1. Sinus rhythm. 2. This was a technically difficult study with suboptimal views. 3. The left ventricular size is normal. 4. Left ventricular wall thickness is normal. 5. Overall left ventricular systolic function is low-normal with, an EF between 50 - 55 %. 6. The right ventricle is normal in size. 7. Normal LA size by volume 22+/-6 ml/m2. 8. 3ml of Lumason was utilized for enhancement of images. 9. There is mild aortic valve sclerosis. 10. There is trace to mild mitral regurgitation. 11. Mild tricuspid regurgitation present. 12. Right ventricular systolic pressure is normal at < 35 mmHg. 13. The pulmonic valve was not well visualized. 14. There is no pulmonic regurgitation present. 15. The aortic root size is normal. 16. There is no pericardial effusion. COMPUTER REPAIRER: Chris Contreras RDCS
== END | disposition home or self-care (01) ==
LOC: RADECHMAIN 13:58
PROVIDERS: ATTEND Internal Medicine Hematology & Oncology
DX: C34.12 Malignant neoplasm of upper lobe, left bronchus or lung (principal); Z03.89 Encounter for observation for other suspected diseases and conditions ruled out; Z01.818 Encounter for other preprocedural examination; J90 Pleural effusion, not elsewhere classified
CPT/HCPCS: 82565; 84520; 71260; 74177; 36415; C8929; Q9950; Q9967; 93306

== ENCOUNTER → 2018-03-16 | Outpatient (CLI) | payer MEDICARE ==
--- NOTE | 2018-03-16 16:00 | CT ---
EXAMINATION TYPE: CT ChestAbdPelvis w con DATE OF EXAM: 03/16/2018 COMPARISON: 12/22/2017 and 09/21/2017 HISTORY: 81-year-old male Follow up lung Cancer TECHNIQUE: Contiguous axial scanning of the chest, abdomen, and pelvis performed with IV Contrast, pa tient injected with 100 mL of Isovue 300. Delayed images through the kidneys were obtained. Coronal/s agittal reconstructions performed. CT DLP: 1730.9 mGycm Automated exposure control for dose reduction was used. FINDINGS: Chest: Heart normal size without pericardial effusion. Mild coronary vascular calcifications are present. Borderline ectasia ascending aorta 3.6 cm. Smaller metastatic arch calcifications with conventional a [facility] vessel branching anatomy. Moderate bilateral gynecomastia. No thoracic lymphadenopathy by CT size criteria. Stable soft tissue enlargement involving or adjacent to the left lobe of the thyroid gland is unchang ed from 12/22/2017 but less pronounced from 09/21/2017. Spiculated left basilar pulmonary nodule measures 1.0 cm versus 1.3 cm scar previously. Small left pl eural effusion is unchanged with adjacent pleural parenchymal thickening, probably scarring. Trace ri ght effusion now noted. ABDOMEN: Calcified granuloma left liver lobe. No focal liver lesion seen. Multiple calculi in the gallbladder measuring up to 1.0 cm. No abnormal gallbladder distention. Brock l venous system is patent on the delayed kidney images. No biliary ductal dilatation. Right adrenal nodule now measures 1.4 cm versus 1.6 cm, previously and 2.3 cm on 09/21/2017. Left adrenal gland, left kidney, spleen, and pancreas appear within normal limits. 5.4 cm exophytic cyst lower pole right kidney. Tiny subcentimeter hypodensity posterior right kidney too small for accurate CT characterization, likely cyst. Unchanged prominent 8 mm aortocaval lymph node in the retroperitoneum. No mesenteric or lymphadenopat hy. No dilated small bowel, free fluid, or free air. Scattered mild stool. No pericolonic inflammatory change. Redemonstrated sigmoid diverticulosis. No d efinite pericolonic inflammatory change. Pelvis: Bladder is urine distended. Prostate gland measures 5.9 cm wide area no abnormal fluid collection in the pelvis or pelvic lymphadenopathy. Bones: Destructive soft tissue lesion anterior right iliac crest slightly smaller at 6.7 cm versus 7.8 cm, p reviously. Stable lytic lesion within the right L2 vertebral body and left T9 posterior elements. Destructive so ft tissue lesion right anterolateral fourth rib is smaller at 3.7 x 2.1 cm versus 3.9 x 3.0 cm. The destructive sternal lesion is also smaller with some interval osseous healing now demonstrated. No new osseous lesions are seen. IMPRESSION: 1. OVERALL PARTIAL TREATMENT RESPONSE. The destructive sternal lesion is less pronounced with some in terval bony healing change. The right fourth rib and right anterior iliac crest soft tissue lesions a re also slightly smaller. The right adrenal nodule is slightly smaller. 2.Abnormal soft tissue at or adjacent to the left lobe of thyroid gland is improved from 09/21/2017 bu t stable from 12/22/2017. 3. Left basilar pulmonary nodule is smaller, 1 cm versus 1.3 cm, previously. Small left pleural effus ion with adjacent pleural parenchymal opacity, probably scarring, remains. 4. The L2 vertebral body and T9 posterior element lytic lesions are unchanged. 5. Sigmoid diverticulosis. Cholelithiasis.
== END | disposition home or self-care (01) ==
LOC: RADCTMAIN 12:29
PROVIDERS: ATTEND Internal Medicine Hematology & Oncology
DX: M89.9 Disorder of bone, unspecified (principal); E07.89 Other specified disorders of thyroid; J90 Pleural effusion, not elsewhere classified; R91.1 Solitary pulmonary nodule; C34.12 Malignant neoplasm of upper lobe, left bronchus or lung
CPT/HCPCS: 82565; 84520; 71260; 74177; Q9967

== ENCOUNTER → 2018-06-07 | Outpatient (CLI) | payer MEDICARE ==
--- NOTE | 2018-06-07 16:31 | CT ---
EXAMINATION TYPE: CT ChestAbdPelvis w con DATE OF EXAM: 06/07/2018 COMPARISON: 03/16/2018 and 12/22/2017 HISTORY: 82-year-old male prechemotherapy, Follow up for lung CA TECHNIQUE: Contiguous axial scanning of the chest, abdomen, and pelvis performed with IV Contrast, pa tient injected with 100 mL of Isovue 300. Delayed images through the kidneys were obtained. Coronal/s agittal reconstructions performed. CT DLP: 1882.6 mGycm Automated exposure control for dose reduction was used. FINDINGS: Chest: There is stable asymmetric enlargement of the left lobe of the thyroid gland. Heart normal size without pericardial effusion. Aorta normal caliber with mild to moderate arthritic arch calcifications and conventional arch vessel branching anatomy. Nonenlarged AP window lymph node. No thoracic lymphadenopathy by CT size criteria. Moderate bilatera l gynecomastia. Curvilinear areas of pleural-parenchymal scarring redemonstrated at the left greater than right lung bases. A trace residual left pleural effusion remains, improved from prior. Very minimal residual 7 mm nodularity at the peripheral left lower lobe versus 1 cm, previously, axia l image 40. Some similar pleural parenchymal scarring at the right apex. Stable focal patch of ground glass measuring 7 mm anterior right midlung, axial image 33. Abdomen: No focal liver lesion or biliary ductal dilatation. Numerous gallstones are present. No abnormal gall bladder distention. No biliary ductal dilatation. Portal venous system is patent. 1.3 cm nodularity right adrenal gland versus 1.4 cm, previously. Right renal cyst measuring up to 5.5 cm, unchanged. Left kidney, left adrenal gland, spleen, and mild ly atrophic pancreas show no gross abnormality. Dilated small bowel, free fluid, or free air. No mesenteric or retroperitoneal lymphadenopathy. Scattered mild to moderate stool. Sigmoid diverticulosis without pericolonic inflammatory change. Pelvis: Bladder is urine distended. Prostate gland measures 5.3 cm wide. Central prostatic calcifications. No abnormal fluid collection in the pelvis or pelvic lymphadenopathy. Bones: Destructive soft tissue lesion involving the right fourth anterolateral rib measures 2 cm thick versu s 2.1 cm, previously, relatively stable. The soft tissue destructive midsternal body lesion spanning 6.8 cm craniocaudal is also stable in rainer earance. Expansile lytic lesion involving the left T9 posterior elements and proximal T10 rib are unchanged. Focal lucent lesion within the L2 vertebral body is unchanged. There may be severe spinal canal steno ses at both L1-L2 and L2-L3. Large destructive soft tissue mass along the anterior right iliac crest measures 6.1 cm, stable to sl ightly smaller as compared to 6.4 cm, previously IMPRESSION: 1. PLEURAL PARENCHYMAL SCARRING REDEMONSTRATED AT BOTH LUNG BASES. THERE IS MINIMAL RESIDUAL 7 MM NOD ULARITY IN THE LEFT LOWER LOBE VERSUS 1 CM, PREVIOUSLY. 2. STABLE TO MINIMALLY IMPROVED OSSEOUS FINDINGS: FOCAL SOFT TISSUE DESTRUCTIVE LESION OF THE MID FRANCISCO J RNAL BODY, RIGHT FOURTH RIB LESION (2.0 CM THICK), RIGHT ANTERIOR ILIAC CREST LESION (6.1 CM VERSUS 6 .4 CM, PREVIOUSLY), RIGHT L2 VERTEBRAL BODY, AND FOCAL LYTIC LESION LEFT T9 POSTERIOR ELEMENTS AND NC OXIMAL T10 RIB. 3. RIGHT ADRENAL GLAND NODULARITY (1.3 CM VERSUS 1.4 CM, PREVIOUSLY). 4. INCIDENTAL: CHOLELITHIASIS AND SIGMOID DIVERTICULOSIS.
--- NOTE | 2018-06-07 17:03 | ECHOF ---
Referral Reason:C34.12 Lung Ca Z01.818 pre chemo MEASUREMENTS -------- HEIGHT: 175.3 cm WEIGHT: 99.8 kg BP: RVIDd: 3.3 cm (< 3.3) IVSd: 1.0 cm (0.6 - 1.1) LVIDd: 4.7 cm (3.9 - 5.3) LVPWd: 1.2 cm (0.6 - 1.1) IVSs: 1.2 cm LVIDs: 3.7 cm LVPWs: 1.2 cm LA Diam: 3.6 cm (2.7 - 3.8) Ao Diam: 3.2 cm (2.0 - 3.7) AV Cusp: 1.5 cm (1.5 - 2.6) LA Diam: 4.0 cm (2.7 - 3.8) MV EXCURSION: 13.883 mm (> 18.000) MV EF SLOPE: 64 mm/s (70 - 150) EPSS: 0.5 cm MV E Adriel: 0.55 m/s MV DecT: 217 ms MV A Adriel: 0.73 m/s MV E/A Ratio: 0.75 RAP: 5.00 mmHg RVSP: 26.84 mmHg FINDINGS -------- Sinus rhythm. This was a technically adequate study. The left ventricular size is normal. Left ventricular wall thickness is normal. Overall left vent ricular systolic function is low-normal with, an EF between 50 - 55 %. The right ventricle is mildly enlarged. The left atrial size is normal. The right atrial size is normal. There is mild aortic valve sclerosis. There is no evidence of aortic regurgitation. Mild mitral annular calcification present. Mild mitral regurgitation is present. Mild tricuspid regurgitation present. There is no evidence of pulmonary hypertension. The right v entricular systolic pressure, as measured by Doppler, is 26.84mmHg. There is no pulmonic regurgitation present. The aortic root size is normal. There is no pericardial effusion. CONCLUSIONS -------- 1. The left ventricular size is normal. 2. Left ventricular wall thickness is normal. 3. Overall left ventricular systolic function is low-normal with, an EF between 50 - 55 %. 4. The right ventricle is mildly enlarged. 5. The left atrial size is normal. 6. The right atrial size is normal. 7. There is mild aortic valve sclerosis. 8. Mild mitral annular calcification present. 9. Mild mitral regurgitation is present. 10. Mild tricuspid regurgitation present. 11. There is no evidence of pulmonary hypertension. 12. The right ventricular systolic pressure, as measured by Doppler, is 26.84mmHg. 13. There is no pulmonic regurgitation present. 14. The aortic root size is normal. 15. There is no pericardial effusion. INDUSTRIAL CUSTODIAN: Vaishnavi Berry RDCS
== END | disposition home or self-care (01) ==
LOC: RADCTMAIN 12:57
PROVIDERS: ATTEND Internal Medicine Hematology & Oncology
DX: Z01.818 Encounter for other preprocedural examination (principal); M89.9 Disorder of bone, unspecified; C34.12 Malignant neoplasm of upper lobe, left bronchus or lung; I08.1 Rheumatic disorders of both mitral and tricuspid valves
CPT/HCPCS: 93306; 82565; 84520; 71260; 74177; Q9967

== ENCOUNTER → 2018-09-27 | Outpatient (CLI) | payer MEDICARE ==
--- NOTE | 2018-09-27 13:50 | ECHOF ---
Referral Reason:C34.12 lung ca chemo MEASUREMENTS -------- HEIGHT: 177.8 cm WEIGHT: 113.4 kg BP: RVIDd: 3.1 cm (< 3.3) IVSd: 1.0 cm (0.6 - 1.1) LVIDd: 3.6 cm (3.9 - 5.3) LVPWd: 1.1 cm (0.6 - 1.1) IVSs: 1.4 cm LVIDs: 1.9 cm LVPWs: 1.3 cm LAESV Index (A-L): 20.54 ml/m Ao Diam: 3.1 cm (2.0 - 3.7) AV Cusp: 1.1 cm (1.5 - 2.6) LA Diam: 3.7 cm (2.7 - 3.8) MV EXCURSION: 16.312 mm (> 18.000) MV EF SLOPE: 102 mm/s (70 - 150) EPSS: 0.9 cm MV E Adriel: 0.63 m/s MV DecT: 282 ms MV A Adriel: 0.82 m/s MV E/A Ratio: 0.77 AV maxP.81 mmHg AV meanP.94 mmHg RAP: 5.00 mmHg RVSP: 18.52 mmHg FINDINGS -------- Sinus rhythm with extra systolic beats. This was a technically difficult study with suboptimal views. The left ventricular size is normal. Left ventricular wall thickness is normal. Overall left vent ricular systolic function is low-normal with, an EF between 50 - 55 %. The right ventricle is normal in size. The left atrial size is normal. The right atrium is normal in size. Lumason used Aortic valve is trileaflet and is mildly thickened. There is mild aortic valve sclerosis. Peak/me an gradient across the Aortic Valve is 14.81mmHg / 7.94mmHg. There is trace mitral regurgitation. Trace tricuspid regurgitation present. The right ventricular systolic pressure, as measured by Dopp ler, is 18.52mmHg. Pulmonic valve appears structurally normal. The aortic root size is normal. IVC Not well visulized. The pericardium is normal. CONCLUSIONS -------- 1. Sinus rhythm with extra systolic beats. 2. This was a technically difficult study with suboptimal views. 3. The left ventricular size is normal. 4. Left ventricular wall thickness is normal. 5. Overall left ventricular systolic function is low-normal with, an EF between 50 - 55 %. 6. The right ventricle is normal in size. 7. The left atrial size is normal. 8. The right atrium is normal in size. 9. Lumason used 10. Aortic valve is trileaflet and is mildly thickened. 11. There is mild aortic valve sclerosis. 12. Peak/mean gradient across the Aortic Valve is 14.81mmHg / 7.94mmHg. 13. There is trace mitral regurgitation. 14. Trace tricuspid regurgitation present. 15. The right ventricular systolic pressure, as measured by Doppler, is 18.52mmHg. 16. Pulmonic valve appears structurally normal. 17. The aortic root size is normal. 18. IVC Not well visulized. 19. The pericardium is normal. DAIRY PROCESSING SUPERVISOR: Berkley Samayoa RDCS
--- NOTE | 2018-09-27 16:28 | CT ---
EXAMINATION TYPE: CT ChestAbdPelvis w con DATE OF EXAM: 09/27/2018 INDICATION: Follow up to lung CA COMPARISON: 06/07/2018 CT DLP: 1932 mGycm CONTRAST: Performed with Oral Contrast and with IV Contrast, patient injected with 80 mL of Isovue 300. TECHNIQUE: Axial images at 5 mm thick sections. Reconstructed images in the coronal plane. Delayed images through the kidneys. FINDINGS: CT CHEST: There may be some gynecomastia. There is some heterogeneity of the left lobe thyroid. Consider additional evaluation with ultrasound. This finding is stable from comparison. There is mild streak opacities within the left lung base which may be related atelectasis. No enlarged mediastinal or hilar adenopathy is evident. Scattered small lymph nodes are present. Thes e are enlarged from the comparison but not enlarged by CT criteria. The ascending aorta diameter at the level of the main pulmonary artery is 3.5 cm. The main pulmonary artery diameter at the bifurcation is 2.[address] ABDOMEN: Liver: There is mild fatty infiltration of liver. Spleen: Normal Pancreas: Atrophic Adrenal glands: The adrenal glands are normal. Gallbladder: Multiple gallstones are present. Kidneys: No masses are evident. No hydronephrosis is present. There is a 5.3 cm cyst in the inferio r pole right kidney measuring 3 Hounsfield units. Delayed images were obtained through the kidneys, which remain unremarkable. Aorta: Vascular calcification is within the aorta. Inferior vena cava: Normal. CT PELVIS: Loops of bowel within the abdomen and pelvis are normal. There are loops of bowel which are incom pletely distended or lack oral contrast limiting their evaluation. Diverticular changes are through t he sigmoid colon without acute diverticulitis. Appendix: Normal as visualized. Urinary bladder: Normal. Genitourinary structures: Prostate is prominent. Osseous structures: There is a large destructive lesion of the anterior superior iliac spine. This me asures 9.4 x 7.1 cm. This is enlarged from 6 cm. There is a lytic lesion within the left transverse p rocess of T9. Series 3 image 41 IMPRESSIONS: 1. Lytic expansile masses within the right anterior superior iliac spine and the left transverse proc ess region at T9. Findings are suspicious for metastatic disease which are enlarging from prior. 2. Diverticulosis without acute diverticulitis. 3. Cholelithiasis. 4. Simple renal cyst inferior pole right kidney.
== END ==
LOC: RADCTMAIN 09:02
PROVIDERS: ATTEND Internal Medicine Hematology & Oncology
DX: Z01.818 Encounter for other preprocedural examination (principal); K80.20 Calculus of gallbladder without cholecystitis without obstruction; N28.1 Cyst of kidney, acquired; K57.90 Diverticulosis of intestine, part unspecified, without perforation or abscess without bleeding; M89.8X8 Other specified disorders of bone, other site; C34.12 Malignant neoplasm of upper lobe, left bronchus or lung
CPT/HCPCS: 82565; 84520; 71260; 74177; 36415; C8929; Q9950; Q9967; 93306

== ENCOUNTER → 2018-10-08 | Outpatient (CLI) | payer MEDICARE ==
--- NOTE | 2018-10-09 20:37 | MR ---
EXAMINATION TYPE: MR brain wo/w con DATE OF EXAM: 10/08/2018 COMPARISON: 04/17/2017 HISTORY: Lung ca, falling, weakness TECHNIQUE: Multiplanar, multisequence images of the brain and brainstem is performed without and with IV contras t, utilizing 9.5 mL intravenous Gadavist . FINDINGS: There is diffuse cerebral cortical atrophy. There is no mass effect nor midline shift. Ther e is no sign of intracranial hemorrhage. There is patchy increased signal in the periventricular whit e matter on the T2 and FLAIR images. There is similar mild patchy increased signal in the josé luis. There is no evidence of intracranial mass. There is some mucosal thickening in the maxillary sinuses. Cont rast images show no pathologic enhancement. There is normal contrast opacification of the venous sinu ses. I see no evidence of cerebral edema. . IMPRESSION: Cerebral atrophy. No acute intracranial abnormality. No evidence of metastatic disease. Mild maxillary sinusitis. . Patchy white matter signal changes consistent with chronic small vessel ischemia. Sinusitis is improved compared to old exam. White matter disease unchanged.
== END ==
LOC: RADMRIMAIN 16:30
PROVIDERS: ATTEND Internal Medicine Hematology & Oncology
DX: C34.90 Malignant neoplasm of unspecified part of unspecified bronchus or lung (principal); G31.9 Degenerative disease of nervous system, unspecified
CPT/HCPCS: 70553; A9585